=== PATIENT | male | born 1970 | race Caucasian/White ===

== ENCOUNTER 2022-08-15 07:25 | Day surgery (SDC) | payer BC, SELFPAY ==
[2022-08-11 13:15] VITALS: BMI 31.7
[2022-08-14 12:09] VITALS: BMI 31.7
[2022-08-15 07:54] VITALS: BP 129/86; PULSE 75; RESP 18; TEMP 36.7; O2SAT 94
--- NOTE | 2022-08-15 08:21 | P.PN_ITS ---
[facility] Disclaimer: The information contained in this section may have been updated after the patient was seen, as this information can be updated by other users. Medical History Allergies Hyperlipidemia Hypertension Surgical History History of carpal tunnel release History of discectomy Family History Father Family history of diabetes mellitus type II Social History Smoking Status: Never smoker alcohol intake: current substance use type: denies use current occupational status: employed Travel in the last 8 weeks: None [facility] Anesthesia Checklist Patient Identification Patient Identification: Arm Band Structural Data Admitted From: Home Planned Operative Procedure/s: colonoscopy Consent for Planned Operative Procedure(s) Verified: Yes Verified Documents: Surgical Consent and History and Physical NPO Status Verified Time NPO: 00:00 Additional verifications Anesthesia Reactions: No Hx Blood Transfusions: No Blood Transfusion Reaction: No Airway Assessment C-Spine Mobility Assessed: Yes TMJ Mobility Assessed: Yes Dentition: Good Dentition Neurological Assessment Level of Consciousness: Awake and Alert Anesthesia Plan Anesthesia Risk discussed: Yes Anesthesia Plan: Verified ASA Class: II Anesthesia Type: MAC
--- NOTE | 2022-08-15 08:23 | P.PCN_ITS ---
Procedure: Date: 08/15/22 Patient Date of :: 1970 Procedure Performed:: Colonoscopy Indications:: Screening Performing Provider:: Austin Steiner MD Referring Provider:: . Sedation:: Monitored anesthesia care Procedure:: After informed consent was obtained the patient was taken to the endoscopy suite. Sedation ensued after the patient was transferred to the left lateral decubitus position. Pulse, blood pressure, and oxygen saturation were monitored throughout the procedure. Digital rectal exam revealed no significant abnormality. The colonoscope was placed in position. The entire colon was eval uated. The colonoscope was carefully removed and the patient was transferred to recovery in stable condition. Please see findings and specimens below for detail. Findings:: Bowel preparation moderate Moderate lack of relaxation Specimens:: None Recommendations:: Repeat colonoscopy in 2-3 years with alternate/extended bowel preparation. If repeat colonoscopy reveals no significant abnormality, timing of future colonoscopies will likely be extended. Complications:: No immediate Estimated blood obtained (mL): 0
[2022-08-15 08:25] VITALS: O2SAT 94
[2022-08-15 08:57] VITALS: BP 101/69; PULSE 77; RESP 16; TEMP 36.6; O2SAT 95
[2022-08-15 09:07] VITALS: BP 105/64; PULSE 77; RESP 17; O2SAT 95
[2022-08-15 09:17] VITALS: BP 127/69; PULSE 72; RESP 16; O2SAT 96
== END 2022-08-15 09:20 | disposition home or self-care (01) ==
PROVIDERS: PCP Internal Medicine Adolescent Medicine; Visit Provider Surgery
PROC: 0DJD8ZZ Inspection of Lower Intestinal Tract, Via Natural or Artificial Opening Endoscopic (ICD-10-PCS; CPT 45378; principal; 2022-08-15 08:30)
DX: Z12.11 Encounter for screening for malignant neoplasm of colon (principal); Z79.899 Other long term (current) drug therapy
CPT/HCPCS: 45378